=== PATIENT | male | born 1960 | race Two or more races ===

== ENCOUNTER 2019-02-17 15:15 | Emergency (ER) | payer OTHER ==
[~2019-02-17] VITALS: Ht 154.9 cm; Wt 88.0 kg
[2019-02-17 15:26] VITALS: BP 156/91
--- NOTE | 2019-02-17 15:30 | NUR ---
ED Nurse Note: AMBULATED IN TO ER FROM WORK DUE TO LACERATION ON POSTERIOR HEAD FROM A FALL ABOUT 0830 TODAY. PT REPORTS THAT HE MISSED A STEP AND FELL BACKWARDS; DENIES LOC, N/V. PT REPORTS THAT HE BLACKED OUT FOR FEW SECONDS AFTER FALL. PT C/O LETHARGIC AND TINGLING ON BILATERAL UPPER ARM AND HANDS. DENIES SOB AND CP. A/OX4.
--- NOTE | 2019-02-17 15:42 | NUR ---
ED Nurse Note: PT SENT DOWN TO CT IN [facility]. A/OX4. NO S/S OF DISTRESS. VSS
[2019-02-17 15:44] LABS: BASOPHILS % (AUTO) 1.3 % (0.0-2.0); EOSINOPHILS % (AUTO) 0.8 % (0.0-3.0); HEMATOCRIT 51.6 % (42.0-52.0); HEMOGLOBIN 17.3 G/DL (14.2-18.0); LYMPHOCYTES % (AUTO) 20.3 % (20.0-45.0); MEAN CORPUSCULAR VOLUME 93 FL (80-99); MONOCYTES % (AUTO) 7.2 % (1.0-10.0); NEUTROPHILS % (AUTO) 70.4 % (45.0-75.0); PLATELET COUNT 230 K/UL (150-450); RED BLOOD COUNT 5.57 M/UL (4.70-6.10); RED CELL DISTRIBUTION WIDTH 11.9 % (11.6-14.8); WHITE BLOOD COUNT 9.8 K/UL (4.8-10.8)
[2019-02-17 16:03] LABS: ANION GAP 11 mmol/L (5-15); BLOOD UREA NITROGEN 19 mg/dL (7-18); CALCIUM 9.3 MG/DL (8.5-10.1); CARBON DIOXIDE 27 MMOL/L (21-32); CHLORIDE 102 MMOL/L (98-107); CREATININE 1.1 MG/DL (0.55-1.30); POTASSIUM 3.9 MMOL/L (3.5-5.1); SODIUM 140 MMOL/L (136-145)
[2019-02-17 16:16] LABS: ALANINE AMINOTRANSFERASE 29 U/L (12-78); ALBUMIN 3.7 G/DL (3.4-5.0); ALBUMIN/GLOBULIN RATIO 0.9 (1.0-2.7); ALKALINE PHOSPHATASE 58 U/L (46-116); ASPARTATE AMINO TRANSFERASE 19 U/L (15-37); BILIRUBIN,TOTAL 0.5 MG/DL (0.2-1.0); CKMB 1.6 NG/ML (0.0-3.6); CREATINE KINASE 115 U/L (26-308)
--- NOTE | 2019-02-17 16:31 | Diagnostic Imaging Report ---
Indication: ,, Fall, pain, laceration on posterior head Technique: Continuous helical CT scanning of the head was performed without intravenous contrast material. Axial and coronal 5 mm sections were generated. Radiation dose was minimized using automated exposure control Dose: Total Dose Length Product - DLP 1734.[address] Dose Index - CTDIvol(s) 70.38,15.77 mGy. Comparison: none Findings: The ventricular system is normal in size and configuration. There is no shift of midline structures. No abnormal extra-axial fluid collections are noted. There is no evidence of intracerebral bleeding. No other abnormal high or low density areas are noted within the brain. There is minimal contusion of the left posterior parietal scalp. There is minimal ethmoid and sphenoid mucosal disease. The visualized orbits are unremarkable. The mastoids are clear Impression: Normal CT scan of the head without contrast material. Evidence of left parietal scalp soft tissue injury The CT scanner at [facility] is accredited by the [employer] and the scans are performed using protocols designed to limit radiation exposure to as low as reasonably achievable to attain images of sufficient resolution adequate for diagnostic evaluation.
--- NOTE | 2019-02-17 16:32 | Diagnostic Imaging Report ---
Indication: Neck pain, status post fall Technique: Spiral acquisitions obtained through the cervical spine. No IV contrast utilized. Multiplanar reconstructions were generated. Total dose length product 1734.23 mGycm. CTDIvol(s) 70.38,15.77 mGy. Dose reduction achieved using automated exposure control. Comparison: none Findings: Well-corticated ossific density and adjacent defect in the posterior to odontoid tip may reflect old injury or an unfused ossification center. No acute fractures. No dislocations. Bony alignment is normal. Vertebral body heights are preserved. The disc spaces are preserved. No significant disc bulge or protrusion, spinal stenosis, or neural foraminal stenosis. The included extraspinal soft tissues are unremarkable. Impression: Negative The CT scanner at [facility] is accredited by the [employer] and the scans are performed using protocols designed to limit radiation exposure to as low as reasonably achievable to attain images of sufficient resolution adequate for diagnostic evaluation.
--- NOTE | 2019-02-17 16:33 | Diagnostic Imaging Report ---
Indication: Pain, status post fall Technique: One view of the chest Comparison: none Findings: Inspiration is suboptimal. Body habitus somewhat limits evaluation. Hazy opacity in the right lung base could represent an area of consolidation, versus atelectasis. The heart is enlarged. Impression: Cardiomegaly Right basilar atelectasis and/or consolidation
[2019-02-17 17:07] VITALS: BP 151/92
--- NOTE | 2019-02-17 17:09 | Emergency Room Report ---
History of Present Illness General Chief Complaint: Head Injury Source: Patient Present Illness HPI This patient states that at work today he fell backwards from a stop and hit the back of his head. He states he misstepped and was unable to correct himself. He denies any prodromal symptoms such as lightheadedness, chest pain or shortness of breath. He states the fall occurred around 8:30 this morning. He states that since that time he has had pain in the back of his head. He also feels disoriented at times. He denies weakness. He denies tingling or numbness. He denies blurry vision. He denies neck pain. He denies any other injury, complaints or pain. Allergies: Coded Allergies: No Known Allergies (Unverified , 02/17/19) Patient History Past Medical History: none, see triage record Social History: Denies: smoking, alcohol use, drug use Reviewed Nursing Documentation: PMH: Agreed; PSxH: Agreed Nursing Documentation-PMH Past Medical History: No Stated History Review of Systems All Other Systems: negative except mentioned in HPI Physical Exam Vital Signs Date Time Temp Pulse Resp B/P (MAP) Pulse Ox O2 Delivery O2 Flow Rate FiO2 02/17/19 15:19 99.3 69 17 170/97 97 Room Air Sp02 EP Interpretation: reviewed, normal General Appearance: no apparent distress, alert, GCS 15, non-toxic Head: normocephalic, other - Quarter sized area of swelling and abrasion with dried blood. Eyes: bilateral eye normal inspection, bilateral eye PERRL ENT: hearing grossly normal, normal pharynx, no angioedema, normal voice Neck: normal inspection, full range of motion, tender midline Respiratory: chest non-tender, lungs clear, normal breath sounds, no respiratory distress, no retraction, no accessory muscle use, speaking full sentences Cardiovascular #1: regular rate, rhythm, no edema Gastrointestinal: normal bowel sounds, non tender, soft, non-distended, no guarding, no rebound Rectal: deferred Musculoskeletal: back normal, gait/station normal, normal range of motion, non- tender Neurologic: alert, oriented x3, responsive, motor strength/tone normal, sensory intact, speech normal Psychiatric: judgement/insight normal, memory normal, mood/affect normal, no suicidal/homicidal ideation Skin: warm/dry, well hydrated, other - See above in head exam. Medical Decision Making Diagnostic Impression: Primary Impression: Closed head injury Additional Impressions: Fall (on) (from) other stairs and steps, initial encounter Hypertension Cardiomegaly ER Course This patient has a clinical presentation consistent with closed head injury. I did obtain a CT of the head and cervical spine given the patient's physical exam. CT of the head and C-spine are unremarkable. The patient does have an occipital cephalhematoma. There is no closable laceration at this location. Overall, the patient evaluation is benign. At this time, I did not identify an emergency medical condition. The patient's chest x-ray was very limited. There were findings that are likely cardiomegaly, which is likely cardiomyopathy related to long-standing hypertension. The patient was also hypertensive here in the emergency department. Further discussion with the patient and he does not ever go see a primary care physician. I will go ahead and start the patient on a low-dose of an anti-hypertensive medication and I educated the patient that he would need to follow-up closely as an outpatient with a primary care physician. I also educated the patient on the findings on his chest x-ray that is most likely cardiomegaly. He indicated understanding. He plans to follow-up as instructed. The patient was given close return precautions and followup instructions. Laboratory Tests Test 02/17/19 15:30 White Blood Count 9.8 K/UL (4.8-10.8) Red Blood Count 5.57 M/UL (4.70-6.10) Hemoglobin 17.3 G/DL (14.2-18.0) Hematocrit 51.6 % (42.0-52.0) Mean Corpuscular Volume 93 FL (80-99) Mean Corpuscular Hemoglobin 31.1 PG (27.0-31.0) H Mean Corpuscular Hemoglobin Concent 33.5 G/DL (32.0-36.0) Red Cell Distribution Width 11.9 % (11.6-14.8) Platelet Count 230 K/UL (150-450) Mean Platelet Volume 8.0 FL (6.5-10.1) Neutrophils (%) (Auto) 70.4 % (45.0-75.0) Lymphocytes (%) (Auto) 20.3 % (20.0-45.0) Monocytes (%) (Auto) 7.2 % (1.0-10.0) Eosinophils (%) (Auto) 0.8 % (0.0-3.0) Basophils (%) (Auto) 1.3 % (0.0-2.0) Prothrombin Time 10.3 SEC (9.30-11.50) Prothrombin Time INR 1.0 (0.9-1.1) PTT 30 SEC (23-33) Sodium Level 140 MMOL/L (136-145) Potassium Level 3.9 MMOL/L (3.5-5.1) Chloride Level 102 MMOL/L (98-107) Carbon Dioxide Level 27 MMOL/L (21-32) Anion Gap 11 mmol/L (5-15) Blood Urea Nitrogen 19 mg/dL (7-18) H Creatinine 1.1 MG/DL (0.55-1.30) Estimate Glomerular Filtration Rate > 60 mL/min (>60) Glucose Level 93 MG/DL (74-106) Calcium Level 9.3 MG/DL (8.5-10.1) Total Bilirubin 0.5 MG/DL (0.2-1.0) Aspartate Amino Transferase (AST) 19 U/L (15-37) Alanine Aminotransferase (ALT) 29 U/L (12-78) Alkaline Phosphatase 58 U/L (46-116) Total Creatine Kinase 115 U/L (26-308) Creatine Kinase MB 1.6 NG/ML (0.0-3.6) Creatine Kinase MB Relative Index 1.3 Troponin I 0.000 ng/mL (0.000-0.056) Total Protein 7.9 G/DL (6.4-8.2) Albumin 3.7 G/DL (3.4-5.0) Globulin 4.2 g/dL Albumin/Globulin Ratio 0.9 (1.0-2.7) L EKG Diagnostic Results Rate: normal Rhythm: NSR ST Segments: no acute changes Rhythm Strip Diag. Results EP Interpretation: yes Rate: 60's Rhythm: NSR, no PVC's, no ectopy Chest X-Ray Diagnostic Results Chest X-Ray Diagnostic Results : Chest X-Ray Ordered: Yes # of Views/Limited/Complete: 1 View Indication: Other EP Interpretation: Yes Interpretation: other - Limited by poor inspiration/body habitus. Possible cardiomegaly vs limited image. Impression: No acute disease Electronically Signed by: Hannah Hollis DO Last Vital Signs Date Time Temp Pulse Resp B/P (MAP) Pulse Ox O2 Delivery O2 Flow Rate FiO2 02/17/19 15:26 99.3 69 15 156/91 98 Room Air Status: improved Disposition: HOME, SELF-CARE Condition: Improved Scripts No Active Prescriptions or Reported Meds Referrals: NOT CHOSEN IPA/,REFERRING (PCP) Hannah Hollis DO Feb 17, 2019 17:09
[2019-02-17] MEDS ORDERED: IBUPROFEN600 MG ORAL (17:11)
[2019-02-17 17:30] VITALS: BP 144/83
--- NOTE | 2019-02-17 17:31 | NUR ---
ER DISCHARGE NOTE: Patient is cleared to be discharged per ERMD, pt is aox4, on room air, with stable vital signs. pt was given dc and prescription instructions, pt was able to verbalize understanding, pt id band and iv site removed without complications. pt is able to ambulate with steady gait. pt took all belongings.
--- NOTE | 2019-02-20 15:42 | Cardiology Report ---
APPROVED REPORT EKG Measurement Heart [id number] Normal sinus rhythm Normal ECG
== END 2019-02-17 17:31 | disposition home or self-care (01) ==
LOC: EMR 15:55
DX: S09.90XA Unspecified injury of head, initial encounter (principal); I10 Essential (primary) hypertension; I51.7 Cardiomegaly; W10.9XXA Fall (on) (from) unspecified stairs and steps, initial encounter; Y92.9 Unspecified place or not applicable
CPT/HCPCS: 36415; 70450; 71045; 72125; 80053; 82550; 82553; 84484; 85025; 85610; 85730; 93005; 99284